=== PATIENT | male | born 1945 | race Caucasian/White ===

== ENCOUNTER 2017-11-05 14:33 | Emergency (ER) | payer OTHER ==
[~2017-11-05] VITALS: Ht 177.8 cm; Wt 90.7 kg
[2017-11-05] MEDS ORDERED: NEXIUM40 MG PO (14:39)
[2017-11-05] MEDS ORDERED: NORCO 5-325 TA1 EACH PO (16:06)
[2017-11-05 16:26] VITALS: BP 166/82
== END 2017-11-05 16:27 | disposition home or self-care (01) ==
LOC: M.ERS 14:33
DX: S22.42XA Multiple fractures of ribs, left side, initial encounter for closed fracture (principal); K21.9 Gastro-esophageal reflux disease without esophagitis; K51.80 Other ulcerative colitis without complications; W18.39XA Other fall on same level, initial encounter; Y93.89 Activity, other specified; Y92.89 Other specified places as the place of occurrence of the external cause; Y99.8 Other external cause status